=== PATIENT | female | born 1975 | race Caucasian/White ===

== ENCOUNTER 2022-09-01 20:48 | Emergency (ER) | payer SELFPAY | END 2022-09-01 21:40 | disposition left against medical advice (07) | LOC: ED 20:48 | DX: Z53.21 Procedure and treatment not carried out due to patient leaving prior to being seen by health care provider (principal) ==

== ENCOUNTER 2022-11-06 10:08 | Emergency (ER) | payer MEDICAID ==
[2022-11-06 10:28] VITALS: BP 123/80; PULSE 98; O2SAT 96
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
== END 2022-11-06 11:11 | disposition home or self-care (01) ==
LOC: ED 10:08
DX: R10.2 Pelvic and perineal pain (principal); S39.013S Strain of muscle, fascia and tendon of pelvis, sequela; Z79.891 Long term (current) use of opiate analgesic; Z28.310 Unvaccinated for COVID-19; Z72.0 Tobacco use
CPT/HCPCS: 99282